=== PATIENT | female | born 1935 | race Caucasian/White ===

== ENCOUNTER 2022-08-29 12:25 | Outpatient (CLI) | payer MEDICARE ==
[~2022-08-29 12:25] MED LIST: Iopamidol 300 61% 100 ML VIAL FS ONE
== END 2022-08-29 12:26 | disposition home or self-care (01) ==
LOC: CSHCT 12:25
PROVIDERS: ATTEND Internal Medicine Hematology & Oncology
DX: C25.9 Malignant neoplasm of pancreas, unspecified (principal); R91.8 Other nonspecific abnormal finding of lung field; C78.7 Secondary malignant neoplasm of liver and intrahepatic bile duct
CPT/HCPCS: 71260; 74177

== ENCOUNTER 2022-10-10 09:25 | Outpatient (CLI) | payer MEDICARE | END 2022-10-10 09:26 | disposition home or self-care (01) | LOC: CSHCT 09:25 | PROVIDERS: ATTEND Internal Medicine Hematology & Oncology | DX: C25.3 Malignant neoplasm of pancreatic duct (principal); R91.8 Other nonspecific abnormal finding of lung field; C78.7 Secondary malignant neoplasm of liver and intrahepatic bile duct; K86.89 Other specified diseases of pancreas; Z96.89 Presence of other specified functional implants; K83.8 Other specified diseases of biliary tract; K59.00 Constipation, unspecified | CPT/HCPCS: 71260; 74177 ==